=== PATIENT | female | born 1935 | race Caucasian/White ===

== ENCOUNTER 2016-12-09 15:02 | Emergency (ER) | payer OTHER ==
[~2016-12-09] VITALS: Ht 160 cm; Wt 89.0 kg
[2016-12-09 15:53] LABS: EOSINOPHIL (%) 1.1 % (0-5); EOSINOPHIL COUNT 0.1 K/uL (0-0.3); HEMATOCRIT 34.5 % (36.0-46.0); IMMATURE GRANULOCYTE (%) 0.1 % (0.0-0.7); IMMATURE GRANULOCYTE COUNT 0.1 K/uL; LYMPHOCYTE COUNT 1.9 K/uL (1.0-2.8); MCH 31.2 PG (29.0-34.0); MCHC 34.5 G/DL (30.0-36.0); MCV 90.6 FL (83-99); MEAN PLAT.VOLUME 8.6 uM^3 (9.5-12.4); MONOCYTE (%) 12.4 % (3-12); NEUTROPHIL (%) 62.6 % (45-76); NEUTROPHIL COUNT 5.1 K/uL (1.8-6.4); PLATELET COUNT 268 K/uL (156-360); RBC DIS.WIDTH-CV 12.8 % (11.8-14.6); RBC DIS.WIDTH-SD 41.1 % (39-53); RED BLOOD COUNT 3.81 M/uL (3.80-5.20); WHITE BLOOD COUNT 8.1 K/uL (4.1-10.2)
[2016-12-09 16:01] LABS: CHLORIDE 97 mEq/L (99-109); SODIUM 129 mEq/L (136-147)
[2016-12-09 16:02] LABS: MAGNESIUM 1.8 mg/dL (1.3-2.7)
[2016-12-09 16:04] LABS: GLUCOSE 130 mg/dL (70-99)
[2016-12-09 16:05] LABS: ANION GAP 9 MEQ/L (2-14)
[2016-12-09 16:06] LABS: TOTAL BILIRUBIN 0.2 mg/dL (0.0-1.0)
[2016-12-09 16:07] LABS: ALKALINE PHOSPHATASE 67 IU/L (3-129)
[2016-12-09 16:08] LABS: GFR ESTIMATE (CALCULATED) 46 mL/min/
[2016-12-09 16:09] LABS: UREA NITROGEN (BUN) 12 mg/dL (9-23)
[2016-12-09 16:13] LABS: TROP-I INTERPRETATION NEGATIVE; TROPONIN-I < 0.01 ng/mL (0.0-0.30)
[2016-12-09 18:24] LABS: TROP-I INTERPRETATION NEGATIVE; TROPONIN-I < 0.01 ng/mL (0.0-0.30)
[2016-12-09] MEDS ORDERED: ALDACTAZIDE 251 EACH PO (18:44)
[2016-12-09] MEDS ORDERED: LOSARTAN POTAS100 MG PO (18:44)
[2016-12-09] MEDS ORDERED: MULTAQ400 MG PO (18:45)
[2016-12-09] MEDS ORDERED: LORAZEPAM0.5 MG PO (18:45)
[2016-12-09] MEDS ORDERED: LEVO-T75 MCG PO (18:46)
[2016-12-09] MEDS ORDERED: XARELTO20 MG PO (18:46)
[2016-12-09] MEDS ORDERED: RANITIDINE15 MG/1 ML PO (18:47)
[2016-12-09] MEDS ORDERED: RESTASIS 01 DROP/0.4 BOTH EYES (18:48)
[2016-12-09 18:59] VITALS: BP 129/71
== END 2016-12-09 19:03 | disposition home or self-care (01) ==
LOC: EDBD 15:02 → EME 15:02
PROVIDERS: Emergency Medicine
DX: R55 Syncope and collapse (principal); I10 Essential (primary) hypertension; Z79.01 Long term (current) use of anticoagulants
CPT/HCPCS: 70450; 71010; 80053; 83735; 84484; 85025; 93005; 99281; 99284; J7030